=== PATIENT | female | born 1980 | race Two or more races ===

== ENCOUNTER 2023-11-16 16:16 | Emergency (ER) | payer OTHER ==
[~2023-11-16] VITALS: Ht 167.6 cm; Wt 65.8 kg
[2023-11-16 21:02] LABS: HEMATOCRIT 34.5 % (36.0-45.00); HEMOGLOBIN 11.3 g/dL (12.0-15.00); MEAN CELL VOLUME 76.7 fL (80.00-100.00); MEAN CORPUSCULAR HEMOGLOBIN 25.1 pg (27.00-32.0); MEAN CORPUSCULAR HGB CONC 32.7 g/dl (32.0-36.0); PLATELET COUNT 305 K/uL (150-450); RED CELL DISTRIBUTION WIDTH 15.5 % (11.5-14.5)
[2023-11-16 21:21] LABS: CALCIUM 9.5 mg/dL (8.5-10.1); CREATININE SERUM 0.92 mg/dL (0.55-1.02); GFR 66.01; POTASSIUM 3.71 mEq/L (3.5-5.1)
[2023-11-16 23:16] LABS: PH,URINE 7.5 (5.0-8.0); URINE APPEARANCE Clear; URINE BILIRRUBIN Negative (NEGATIVE); URINE BLOOD Negative; URINE COLOR Yellow; URINE GLUCOSE Negative (NEGATIVE); URINE LEUKOCYTE Negative; URINE NITRATE Negative; URINE PROTEIN Negative (NEGATIVE); URINE UROBILINOGEN 0.2 E.U./dl
[2023-11-16 23:20] LABS: URINE BACTERIA 138.4 uL (0.0-1933); URINE WBC 2.9 uL (0.0-23.2)
[2023-11-16 23:28] LABS: URINE RBC 1.8 uL (0.0-20.8)
== END 2023-11-16 23:42 | disposition home or self-care (01) ==
LOC: ER 16:17
DX: N94.0 Mittelschmerz (principal); R10.9 Unspecified abdominal pain